=== PATIENT | male | born 1995 | race Asian ===

== ENCOUNTER 2017-08-22 21:41 | Emergency (ER) | payer OTHER ==
[~2017-08-22] VITALS: Ht 170.2 cm; Wt 74.5 kg
[2017-08-22 22:37] VITALS: BP 122/74
== END 2017-08-22 22:39 | disposition home or self-care (01) ==
LOC: EMS 21:44
DX: S09.90XA Unspecified injury of head, initial encounter (principal); Y04.0XXA Assault by unarmed brawl or fight, initial encounter; Y93.89 Activity, other specified; Y92.89 Other specified places as the place of occurrence of the external cause; Y99.8 Other external cause status
CPT/HCPCS: 99281